=== PATIENT | female | born 1935 | race Caucasian/White ===

== ENCOUNTER → 2021-06-30 | Outpatient (CLI) | payer MEDICARE ==
[~2021-06-30] MED LIST: ACET-907 PO; ALBU8.5H INH; BACI1CAP4 PO; ISOVUE-370 76% 100ML VIAL As Ordered ONE; LEVO750T13 PO; MEGE40SU5 PO; MELA10CA6 PO; MULT-90 PO; NYST50SS PO
== END ==
LOC: M RAD 13:05
PROVIDERS: ATTEND Internal Medicine Medical Oncology
DX: I89.0 Lymphedema, not elsewhere classified (principal)
CPT/HCPCS: 71260; Q9967

== ENCOUNTER 2022-03-13 21:51 | Inpatient (IN) | payer MEDICARE ==
[~2022-03-13] VITALS: Ht 157.5 cm; Wt 40.4 kg
[~2022-03-13 21:51] MED LIST changes: -ISOVUE-370 76% 100ML VIAL As Ordered ONE; +LEVO1TAB40 PO; -LEVO750T13 PO; +LOPE2CAP PO; +MAG-LIQ2 PO
[2022-03-13] MEDS ORDERED: ONDANSETRON 4MG 2ML VIAL IV ONE (22:05)
[2022-03-13] MEDS ORDERED: fentaNYL 100 MCG/2 ML INJECTION IV PRN (23:00)
[2022-03-13 23:01] LABS: BASO % 0.3 % (0.0-1.0); EOS # 0.1 10^3/uL (0.0-0.5); HEMATOCRIT 32.5 % (36.0-47.0); HEMOGLOBIN 10.3 g/dl (12.0-15.5); LYMPH # 1.8 10^3/uL (1.5-5.0); LYMPH % 12.3 % (24.0-44.0); MEAN CORPUSCULAR HEMOGLOBIN 27.5 pg (27.0-33.0); MEAN CORPUSCULAR HGB CONC 31.7 g/dl (32.0-36.5); MEAN CORPUSCULAR VOLUME 86.9 fl (80.0-96.0); MONO # 0.5 10^3/uL (0.0-0.8); MONO % 3.6 % (2.0-8.0); NEUTROPHILS # 11.8 10^3/uL (1.5-8.5); NEUTROPHILS % 82.2 % (36.0-66.0); PLATELET COUNT, AUTOMATED 219 10^3/uL (150-450); RED BLOOD COUNT 3.74 10^6/uL (4.00-5.40); WHITE BLOOD COUNT 14.4 10^3/uL (4.0-10.0)
[2022-03-13 23:32] LABS: RSV AMPLIFICATION NEGATIVE (NEGATIVE)
[2022-03-13 23:40] LABS: CALCIUM LEVEL 8.8 MG/DL (8.8-10.2); CREATININE FOR GFR 1.12 MG/DL (0.55-1.30); POTASSIUM SERUM 3.7 MEQ/L (3.5-5.1)
[2022-03-14] MEDS ORDERED: SENN-80 PO (00:07)
[2022-03-14] MEDS ORDERED: MORP1SOL PO (00:07)
[2022-03-14] MEDS ORDERED: LORA1TAB4 PO (00:07)
[2022-03-14] MEDS ORDERED: HOME MED LIST COMPLETE! XX SCH (00:10)
[2022-03-14] MEDS ORDERED: ONDANSETRON 4MG 2ML VIAL IV PRN (00:15)
[2022-03-14] MEDS ORDERED: LORazepam 0.5 MG TAB PO PRN (00:15)
[2022-03-14] MEDS: MORPHINE 2 MG/ML 1ML VIAL IV PRN ×3 (00:52→18:59)
[2022-03-14 07:51] VITALS: BP 141/63
[2022-03-14] MEDS: SENNA 8.6 MG TAB (SENOKOT) PO SCH ×2 (10:12→10:21)
[2022-03-14] MEDS: PERCOCET 5MG/325MG TAB PO PRN ×2 (13:04→18:35)
[2022-03-15] MEDS: SENNA 8.6 MG TAB (SENOKOT) PO SCH (08:53)
[2022-03-16] MEDS: MORPHINE 2 MG/ML 1ML VIAL IV PRN (02:27)
[2022-03-16] MEDS ORDERED: PERCOCET 5MG/325MG TAB PO PRN (08:00)
[2022-03-16] MEDS: SENNA 8.6 MG TAB (SENOKOT) PO SCH (08:31)
[2022-03-16] MEDS ORDERED: HYOS125TA PO (12:56)
[2022-03-16] MEDS ORDERED: MORP1SOL5 PO (12:56)
[2022-03-16] MEDS ORDERED: ATIV1TAB10 PO (12:56)
[2022-03-16] MEDS ORDERED: MORPHINE 2 MG/ML 1ML VIAL IV PRN (13:30)
== END 2022-03-16 14:15 | disposition hospice, home (50) | DRG 536 ==
LOC: M ED 21:51 → EDBD 21:51 → M ED INP 23:47 → ENRESERV 03-14 10:13 → M MS5PR 03-14 11:00
PROVIDERS: ADMIT Family Medicine; ATTEND Internal Medicine
DX: S72.141A Displaced intertrochanteric fracture of right femur, initial encounter for closed fracture (principal); F03.90 Unspecified dementia, unspecified severity, without behavioral disturbance, psychotic disturbance, mood disturbance, and anxiety; I25.10 Atherosclerotic heart disease of native coronary artery without angina pectoris; R22.2 Localized swelling, mass and lump, trunk; G43.909 Migraine, unspecified, not intractable, without status migrainosus; J44.9 Chronic obstructive pulmonary disease, unspecified; Z51.5 Encounter for palliative care; Z66 Do not resuscitate; Z87.891 Personal history of nicotine dependence; Z79.899 Other long term (current) drug therapy; W18.30XA Fall on same level, unspecified, initial encounter; Y92.122 Bedroom in nursing home as the place of occurrence of the external cause; Y93.89 Activity, other specified; Y99.8 Other external cause status; Z90.49 Acquired absence of other specified parts of digestive tract; Z98.41 Cataract extraction status, right eye; Z98.42 Cataract extraction status, left eye